=== PATIENT | male | born 1980 ===

== ENCOUNTER 2017-08-03 20:39 | Emergency (ER) | payer SELFPAY ==
[2017-08-03 20:39] VITALS: BMI 21.9
[2017-08-03 20:59] VITALS: BP 107/60; PULSE 58; RESP 16; TEMP 97.5; O2SAT 100
--- NOTE | 2017-08-03 21:18 | ED PDOC ---
HPI: Allergic Reaction Time Seen by Provider: 08/03/17 21:00 Chief Complaint (Nursing): Abnormal Skin Integrity Chief Complaint (Provider): Rash History Per: Patient History/Exam Limitations: no limitations Onset/Duration Of Symptoms: Days (x1 ) Current Symptoms Are (Timing): Still Present Possible Cause: Unknown Associated Symptoms: Skin Rash, Itching. denies: Swelling, Trouble Swallowing, Chest Pain Home/EMS Treatment: Benadryl Additional Complaint(s): Osmani Rocha is a 37 year old male, with no past medical history, who presents to the emergency department complaining of a rash associated with itchiness, and epigastric discomfort onset for 1 day. Patient reports taking a benadryl in the morning and at 6pm today with temporary improvement of symptoms. He states he had similar symptoms in the past due to a seafood allergy, but denies eating anything out of the ordinary. Patient denies chest pain, shortness of breath, swelling, vomit, or diarrhea. No further medical complaints. PMD: None provided. Past Medical History Reviewed: Historical Data, Nursing Documentation, Vital Signs Vital Signs: Last Vital Signs Temp 97.5 F L 08/03/17 20:55 Pulse 58 L 08/03/17 20:55 Resp 16 08/03/17 20:55 BP 107/60 08/03/17 20:55 Pulse Ox 100 08/03/17 20:55 - Medical History PMH: No Chronic Diseases Denies: Chronic Kidney Disease - Surgical History Surgical History: Coronary Stent - Family History Family History: States: Unknown Family Hx - Home Medications Home Medications: Ambulatory Orders Medication Instructions Recorded Docusate [Colace] 100 mg PO Q8 03/18/16 Multivitamin [One Daily] 1 tab PO DAILY 03/18/16 Oxycodone HCl/Acetaminophen 5 - 325 mg PO Q8 PRN 03/18/16 [Percocet 5-325 mg Tablet] Cetirizine HCl [Zyrtec] 10 mg PO DAILY #30 cap 08/03/17 DiphenhydrAMINE [Benadryl] 25 mg PO TID #30 cap 08/03/17 Famotidine [Pepcid] 20 mg PO BID #16 tab 08/03/17 predniSONE [predniSONE Tab] 20 mg PO BID #8 tab 08/03/17 - Allergies Allergies/Adverse Reactions: Allergies Allergy/AdvReac Type Severity Reaction Status Date / Time SHELLFISH Allergy RASH Uncoded 03/16/16 10:15 Review of Systems ROS Statement: Except As Marked, All Systems Reviewed And Found Negative Constitutional: Negative for: Other (swelling) Cardiovascular: Negative for: Chest Pain Respiratory: Negative for: Shortness of Breath Gastrointestinal: Negative for: Vomiting, Diarrhea Physical Exam - Reviewed Nursing Documentation Reviewed: Yes Vital Signs Reviewed: Yes - Physical Exam Appears: Positive for: Well, Non-toxic, No Acute Distress Head Exam: Positive for: ATRAUMATIC, NORMAL INSPECTION, NORMOCEPHALIC Skin: Positive for: Normal Color, Warm, Rash (diffused urticaria) Eye Exam: Positive for: Normal appearance ENT: Positive for: Normal ENT Inspection. Negative for: Other (No swelling to tongue or uvula) Neck: Positive for: Normal, Painless ROM, Supple Respiratory: Negative for: Respiratory Distress Extremity: Positive for: Normal ROM. Negative for: Pedal Edema, Deformity, Swelling (No swelling to extremities) Neurologic/Psych: Positive for: Alert, Oriented - ECG O2 Sat by Pulse Oximetry: 100 (RA) Pulse Ox Interpretation: Normal Disposition - Clinical Impression Clinical Impression: Acute urticaria - Disposition Referrals: [facility] [Outside] [facility] [Outside] Disposition Time: 21:32 Condition: STABLE Additional Instructions: take pepcid twice a day-1 tab in the morning and 1 tab at night for 4 days. take zytec once daily in the morning for 4 days take Benadryl if you have a rash or are itching. you can take it every 6 hours as needed no more that 4 tabs a day until rash goes away take prednisone for 4 days, 1 tab each day Prescriptions: Cetirizine HCl [Zyrtec] 10 mg PO DAILY #30 cap DiphenhydrAMINE [Benadryl] 25 mg PO TID #30 cap Famotidine [Pepcid] 20 mg PO BID #16 tab predniSONE [predniSONE Tab] 20 mg PO BID #8 tab Instructions: Urticaria (ED) Forms: [employer] (Albanian) Medical Decision Making Medical Decision Making: Initial Impression: allergic reaction Initial Plan: --Pepcid 40 mg PO --predniSONE 60 mg PO --reevaluation Scribe Attestation: Documented by Jose Lopez, acting as a scribe for Maria L Vignier PA. Provider Scribe Attestation: All medical record entries made by the Scribe were at my direction and personally dictated by me. I have reviewed the chart and agree that the record accurately reflects my personal performance of the history, physical exam, medical decision making, and the department course for this patient. I have also personally directed, reviewed, and agree with the discharge instructions and disposition.
== END 2017-08-03 21:51 | disposition home or self-care (01) ==
LOC: H.ER 20:39
DX: L29.9 Pruritus, unspecified (principal); L50.9 Urticaria, unspecified

== ENCOUNTER 2018-11-29 12:16 | Observation (INO) | payer MEDICAID, OTHER ==
[2018-11-29 12:17] VITALS: BMI 21.9
[2018-11-29] MEDS ORDERED: Sodium Chloride 0.9% 1,000 ML IV STA (13:07)
--- NOTE | 2018-11-29 13:28 | ED PDOC ---
Syncope/Near Syncope/Dizziness Time Seen by Provider: 11/29/18 12:44 Chief Complaint (Nursing): Syncope History Per: Patient Additional Complaint(s): Pt. states yesterday he woke up and went to the bathroom to urinate. States he had to exert more effort to push out his urine and in doing so he developed dizziness. States he walked back to the bedroom and then passed out. States his brother and friend were in the same room and he woke up to them lying him down on the bed. Reports same symptoms in the past but never fully lost consciousness. Reports symptoms only occur when he has to exert himself to urinate. 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 Currently without any complaints. Denies chest pain, palpitations, headache, anticoagulant use, weakness, fever, chills. Past Medical History Reviewed: Historical Data, Nursing Documentation, Vital Signs Vital Signs: Last Vital Signs Temp 97.8 F 11/29/18 12:32 Pulse 72 11/29/18 12:32 Resp 16 11/29/18 12:32 BP 121/81 11/29/18 12:32 Pulse Ox 100 11/29/18 12:32 - Medical History PMH: No Chronic Diseases Denies: Chronic Kidney Disease - Surgical History Surgical History: Coronary Stent - Family History Family History: States: No Known Family Hx - Home Medications Home Medications: Ambulatory Orders Medication Instructions Recorded Deepa Perez 1 tab PO BID 11/29/18 Multivit-Min/Iron/Folic Acid/K 1 tab PO DAILY 11/29/18 [Adults Multivitamin Tablet] - Allergies Allergies/Adverse Reactions: Allergies Allergy/AdvReac Type Severity Reaction Status Date / Time SHELLFISH Allergy RASH Uncoded 11/29/18 12:31 Review of Systems ROS Statement: Except As Marked, All Systems Reviewed And Found Negative Neurological: Positive for: Altered Mental Status, Dizziness Physical Exam - Reviewed Nursing Documentation Reviewed: Yes Vital Signs Reviewed: Yes - Physical Exam Appears: Positive for: Well, Non-toxic, No Acute Distress Head Exam: Positive for: ATRAUMATIC, NORMAL INSPECTION, NORMOCEPHALIC Skin: Positive for: Normal Color, Warm. Negative for: Rash Eye Exam: Positive for: Normal appearance, EOMI, PERRL. Negative for: Nystagmus ENT: Positive for: Normal ENT Inspection Neck: Positive for: Normal, Painless ROM Cardiovascular/Chest: Positive for: Regular Rate, Rhythm. Negative for: Murmur Respiratory: Positive for: Normal Breath Sounds. Negative for: Respiratory Distress Gastrointestinal/Abdominal: Positive for: Normal Exam, Soft. Negative for: Tenderness Back: Positive for: Normal Inspection Extremity: Positive for: Normal ROM Neurologic/Psych: Positive for: Alert, Oriented (x3), Gait (steady, unassisted) - Laboratory Results Result Diagrams: 11/29/18 13:10 11/29/18 13:10 - ECG ECG: Positive for: Interpreted By Me ECG Rhythm: Positive for: Sinus Rhythm. Negative for: ST/T Changes Rate: 64 O2 Sat by Pulse Oximetry: 100 - Progress ED Course And Treament: Labs, metal plater, CT head w/o contrast ordered. Case d/w Dr. Ochoa who agrees with plan and care. [id number] Case d/w Dr. Tejeda and arrangements made for admission. Pt. informed of plan who agrees with care. All questions answered. Disposition - Clinical Impression Clinical Impression: Syncope - Patient ED Disposition Is Patient to be Admitted: Yes - Disposition Disposition Time: 14:39 Condition: FAIR - Pt Status Changed To: Hospital Disposition Of: Observation
[2018-11-29 13:29] LABS: BASO # 0.1 K/uL (0.0-0.2); BASO % 0.8 % (0.0-2.0); EOS # 0.3 K/uL (0.0-0.7); EOS % 5.5 % (0.0-4.0); LYMPH # 1.1 K/uL (1.0-4.3); LYMPH % 17.4 % (20.0-40.0); MEAN CELL VOLUME 90.5 fl (80.0-94.0); MEAN CORPUSCULAR HEMOGLOBIN 29.9 pg (27.0-31.0); MEAN PLATELET VOLUME 9.3 fl (7.2-11.7); MONO # 0.5 K/uL (0.0-0.8); MONO % 8.8 % (0.0-10.0); NEUT # 4.1 K/uL (1.8-7.0); NEUT % 67.5 % (50.0-75.0); NRBC % 0.1 % (0.0-0.0); RBC 4.7 Mil/uL (4.40-5.90); RED CELL DISTRIBUTION WIDTH 12.3 % (11.5-14.5); WHITE BLOOD COUNT 6.1 K/uL (4.8-10.8)
[2018-11-29 13:30] LABS: ALB/GLOB RATIO 1.4 (1.0-2.1); ALBUMIN 3.9 g/dL (3.5-5.0); ALT/SGPT 67 U/L (21-72); AST/SGOT 46 U/L (17-59); BLOOD UREA NITROGEN 28 mg/dl (9-20); CALCIUM 9.3 mg/dL (8.4-10.2); GFR NON-AFRICAN AMERICAN > 60
--- NOTE | 2018-11-29 13:57 | CT ---
Date of service: 11/29/2018 PROCEDURE: CT HEAD WITHOUT CONTRAST. HISTORY: syncope COMPARISON: None available TECHNIQUE: Axial computed tomography images were obtained through the head/brain without intravenous contrast. Radiation dose: Total exam DLP = 871.59 mGy-cm. This CT exam was performed using one or more of the following dose reduction techniques: Automated exposure control, adjustment of the mA and/or kV according to patient size, and/or use of iterative reconstruction technique. FINDINGS: HEMORRHAGE: No intracranial hemorrhage. BRAIN: No mass effect or edema. Localized encephalomalacia in the superior right temporal lobe adjacent to the sylvian fissure common nonspecific. Possible small old infarct. Rule out posttraumatic. VENTRICLES: Unremarkable. No hydrocephalus. CALVARIUM: Unremarkable. PARANASAL SINUSES: Unremarkable as visualized. No significant inflammatory changes. MASTOID AIR CELLS: Unremarkable as visualized. No inflammatory changes. OTHER FINDINGS: None. IMPRESSION: Focal encephalomalacia common nonspecific, superior right temporal lobe adjacent to sylvian fissure. Otherwise unremarkable.
--- NOTE | 2018-11-29 14:51 | RAD ---
Date of service: 11/29/2018 HISTORY: Clearance COMPARISON: No prior. FINDINGS: LUNGS: No active pulmonary disease. PLEURA: No significant pleural effusion identified, no pneumothorax apparent. CARDIOVASCULAR: No aortic atherosclerotic calcification present. Normal cardiac size. No pulmonary vascular congestion. OSSEOUS STRUCTURES: Mild dextroscoliosis centered at the upper/mid thoracic spine.. VISUALIZED UPPER ABDOMEN: Normal. OTHER FINDINGS: None. IMPRESSION: No active disease.
--- NOTE | 2018-11-29 15:32 | CP.PCM.HP ---
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 Pt states that this morning he went to urinate and strained too hard; felt dizzy. He then doesn't remember much, passed out, but remembers waking up to his friend and brother bringing him to his bed. He states he did not hit his head. At the time of interview in ED, he denies dizziness, chest pain, shortness of breath, n/v/d/c, or any accompanying symptoms. PMD: none Past Med hx;: "artery block"? Past Surg hx: angioplasty w/ artery opening Social hx: denies tobacco use, drug use; 1-2 beers a few times a month Family hx: noncontributory Meds: multivitamin, takes supplement from [place] called Jeannette Monson In ED: Vitals stable CBC CMP Troponin neg Head CT: Focal encephalomalacia common nonspecific, superior right temporal lobe adjacent to sylvian fissure. Otherwise unremarkable. CXR: no active disease. Present on Admission - Present on Admission Any Indicators Present on Admission: No Review of Systems - Review of Systems All systems: reviewed and no additional remarkable complaints except - EENT Ears: Dizziness - Cardiovascular Cardiovascular: absent: Chest Pain, Chest Pain at Rest, Dyspnea - Respiratory Respiratory: absent: Cough, Dyspnea, Dyspnea on Exertion - Gastrointestinal Gastrointestinal: absent: Diarrhea, Nausea, Vomiting - Genitourinary Genitourinary: As Per HPI - Neurological Neurological: Dizziness Past Patient History - Infectious Disease Hx of Infectious Diseases: None - Past Medical History & Family History Past Medical History?: Yes - Past Social History Smoking Status: Never Smoked Alcohol: Social Drugs: Denies - CARDIAC Hx Cardiac Disorders: Yes Other/Comment: ?Rheumatic Heart Diease? - PULMONARY Hx Respiratory Disorders: No - NEUROLOGICAL Hx Neurological Disorder: Yes Other/Comment: SOMETIMES NUMBNESS IN MOUTH - HEENT Hx HEENT Problems: No - RENAL Hx Chronic Kidney Disease: No - ENDOCRINE/METABOLIC Hx Endocrine Disorders: No - HEMATOLOGICAL/ONCOLOGICAL Hx Blood Disorders: No - INTEGUMENTARY Hx Dermatological Problems: No - MUSCULOSKELETAL/RHEUMATOLOGICAL Hx Musculoskeletal Disorders: No - GASTROINTESTINAL Hx Gastrointestinal Disorders: No - GENITOURINARY/GYNECOLOGICAL Hx Genitourinary Disorders: No - PSYCHIATRIC Hx Emotional Abuse: No Hx Physical Abuse: No Hx Substance Use: No - SURGICAL HISTORY Hx Coronary Stent: Yes - ANESTHESIA Hx Anesthesia: Yes Hx Anesthesia Reactions: No Hx Malignant Hyperthermia: No Meds Allergies/Adverse Reactions: Allergies Allergy/AdvReac Type Severity Reaction Status Date / Time SHELLFISH Allergy RASH Uncoded 11/29/18 12:31 Physical Exam - Constitutional Appears: Non-toxic, No Acute Distress - Eye Exam Eye Exam: Normal appearance, PERRL - ENT Exam ENT Exam: Mucous Membranes Moist - Neck Exam Neck exam: Positive for: Full Rom - Respiratory Exam Respiratory Exam: Clear to Auscultation Bilateral, NORMAL BREATHING PATTERN - Cardiovascular Exam Cardiovascular Exam: REGULAR RHYTHM, +S1, +S2 - GI/Abdominal Exam GI & Abdominal Exam: Normal Bowel Sounds, Soft. absent: Tenderness - Extremities Exam Extremities exam: Positive for: normal inspection. Negative for: calf tenderness, pedal edema - Back Exam Back exam: NORMAL INSPECTION - Neurological Exam Neurological exam: Alert, Oriented x3 - Skin Skin Exam: Dry, Warm Results - Vital Signs Recent Vital Signs: Last Vital Signs Temp 98.1 F 11/29/18 14:59 Pulse 67 11/29/18 14:59 Resp 16 11/29/18 14:59 BP 116/80 11/29/18 14:59 Pulse Ox 99 11/29/18 14:59 - Labs Result Diagrams: 11/29/18 13:10 11/29/18 13:10 Labs: Laboratory Results - last 24 hr 11/29/18 11/29/18 11/29/18 12:52 13:10 13:10 WBC 6.1 RBC 4.70 Hgb 14.0 Hct 42.5 MCV 90.5 MCH 29.9 MCHC 33.0 RDW 12.3 Plt Count 115 L D MPV 9.3 Neut % (Auto) 67.5 Lymph % (Auto) 17.4 L Edwards % (Auto) 8.8 Eos % (Auto) 5.5 H Baso % (Auto) 0.8 Neut # (Auto) 4.1 Lymph # (Auto) 1.1 Edwards # (Auto) 0.5 Eos # (Auto) 0.3 Baso # (Auto) 0.1 Sodium 138 Potassium 5.1 H Chloride 105 Carbon Dioxide 27 Anion Gap 11 BUN 28 H Creatinine 1.1 Est GFR ( Amer) > 60 Est GFR (Non-Af Amer) > 60 POC Glucose (mg/dL) 97 Random Glucose 81 Calcium 9.3 Total Bilirubin 0.9 AST 46 ALT 67 Alkaline Phosphatase 38 Troponin I < 0.0120 Total Protein 6.8 Albumin 3.9 Globulin 2.8 Albumin/Globulin Ratio 1.4 Assessment & Plan - Assessment and Plan (Free Text) Assessment: 38 yo M with history significant for balloon angioplasty in [place] in 2012 (?) admitted for episode of syncope. Plan: Syncope - Echocardiogram - Carotid & Vertebral Duplex u/s - IVF - Urinalysis - BMP - Lipid panel - Troponin Q8 hrs - TSH - CBC - F/u UDS Hyperkalemia - K 5.1; repeat BMP Diet Heart Healthy Diet DVT/GI prophylaxis - Protonix PO daily - Lovenox SC daily Discussed w/ Dr. Tjeeda. <Marcel Tejeda D - Last Filed: 11/30/18 09:28> Results - Vital Signs Recent Vital Signs: Last Vital Signs Temp 97.8 F 11/30/18 07:52 Pulse 56 L 11/30/18 07:52 Resp 18 11/30/18 07:52 BP 107/71 11/30/18 07:52 Pulse Ox 100 11/30/18 07:52 - Labs Result Diagrams: 11/30/18 04:35 11/30/18 04:35 Labs: Laboratory Results - last 24 hr 11/29/18 11/29/18 11/29/18 12:52 13:10 13:10 WBC 6.1 RBC 4.70 Hgb 14.0 Hct 42.5 MCV 90.5 MCH 29.9 MCHC 33.0 RDW 12.3 Plt Count 115 L D MPV 9.3 Neut % (Auto) 67.5 Lymph % (Auto) 17.4 L Edwards % (Auto) 8.8 Eos % (Auto) 5.5 H Baso % (Auto) 0.8 Neut # (Auto) 4.1 Lymph # (Auto) 1.1 Edwards # (Auto) 0.5 Eos # (Auto) 0.3 Baso # (Auto) 0.1 Sodium 138 Potassium 5.1 H Chloride 105 Carbon Dioxide 27 Anion Gap 11 BUN 28 H Creatinine 1.1 Est GFR ( Amer) > 60 Est GFR (Non-Af Amer) > 60 POC Glucose (mg/dL) 97 Random Glucose 81 Calcium 9.3 Total Bilirubin 0.9 AST 46 ALT 67 Alkaline Phosphatase 38 Troponin I < 0.0120 Total Protein 6.8 Albumin 3.9 Globulin 2.8 Albumin/Globulin Ratio 1.4 Triglycerides Cholesterol LDL Cholesterol Direct HDL Cholesterol TSH 3rd Generation 1.11 Urine Color Urine Clarity Urine pH Ur Specific [place] Urine Protein Urine Glucose (UA) Urine Ketones Urine Blood Urine Nitrate Urine Bilirubin Urine Urobilinogen Ur Leukocyte Esterase Urine RBC (Auto) Ur Squamous Epith Cells Urine Opiates Screen Urine Methadone Screen Ur Barbiturates Screen Ur Phencyclidine Scrn Ur Amphetamines Screen U Benzodiazepines Scrn U Oth Cocaine Metabols U Cannabinoids Screen 11/29/18 11/29/18 11/29/18 15:25 15:25 20:40 WBC RBC Hgb Hct MCV MCH MCHC RDW Plt Count MPV Neut % (Auto) Lymph % (Auto) Edwards % (Auto) Eos % (Auto) Baso % (Auto) Neut # (Auto) Lymph # (Auto) Edwards # (Auto) Eos # (Auto) Baso # (Auto) Sodium Potassium Chloride Carbon Dioxide Anion Gap BUN Creatinine Est GFR ( Amer) Est GFR (Non-Af Amer) POC Glucose (mg/dL) Random Glucose Calcium Total Bilirubin AST ALT Alkaline Phosphatase Troponin I < 0.0120 Total Protein Albumin Globulin Albumin/Globulin Ratio Triglycerides Cholesterol LDL Cholesterol Direct HDL Cholesterol TSH 3rd Generation Urine Color Straw Urine Clarity Clear Urine pH 6.0 Ur Specific [place] 1.011 Urine Protein Negative Urine Glucose (UA) Neg Urine Ketones Negative Urine Blood Negative Urine Nitrate Negative Urine Bilirubin Negative Urine Urobilinogen 0.2-1.0 Ur Leukocyte Esterase Neg Urine RBC (Auto) 2 Ur Squamous Epith Cells < 1 Urine Opiates Screen Negative Urine Methadone Screen Negative Ur Barbiturates Screen Negative Ur Phencyclidine Scrn Negative Ur Amphetamines Screen Negative U Benzodiazepines Scrn Negative U Oth Cocaine Metabols Negative U Cannabinoids Screen Negative 11/30/18 11/30/18 04:35 04:35 WBC 6.0 RBC 4.61 Hgb 13.6 Hct 40.8 MCV 88.5 D MCH 29.5 MCHC 33.3 RDW 12.2 Plt Count 95 L D MPV 9.2 Neut % (Auto) 53.3 Lymph % (Auto) 31.0 Edwards % (Auto) 8.1 Eos % (Auto) 6.8 H Baso % (Auto) 0.8 Neut # (Auto) 3.2 Lymph # (Auto) 1.8 Edwards # (Auto) 0.5 Eos # (Auto) 0.4 Baso # (Auto) 0.0 Sodium 138 Potassium 4.0 Chloride 105 Carbon Dioxide 28 Anion Gap 9 L BUN 23 H Creatinine 1.1 Est GFR ( Amer) > 60 Est GFR (Non-Af Amer) > 60 POC Glucose (mg/dL) Random Glucose 82 Calcium 9.0 Total Bilirubin AST ALT Alkaline Phosphatase Troponin I < 0.0120 Total Protein Albumin Globulin Albumin/Globulin Ratio Triglycerides 74 Cholesterol 169 LDL Cholesterol Direct 117 HDL Cholesterol 47 TSH 3rd Generation Urine Color Urine Clarity Urine pH Ur Specific [place] Urine Protein Urine Glucose (UA) Urine Ketones Urine Blood Urine Nitrate Urine Bilirubin Urine Urobilinogen Ur Leukocyte Esterase Urine RBC (Auto) Ur Squamous Epith Cells Urine Opiates Screen Urine Methadone Screen Ur Barbiturates Screen Ur Phencyclidine Scrn Ur Amphetamines Screen U Benzodiazepines Scrn U Oth Cocaine Metabols U Cannabinoids Screen Attending/Attestation - Attestation I have personally seen and examined this patient.: Yes I have fully participated in the care of the patient.: Yes I have reviewed all pertinent clinical information: Yes Notes (Text): 11/30/18 09:24 Patient seen and examined with resident. Case discussed and agreed with assessment and plan of management. Patient is a 38 yo male with hsitory of CAD base on previous angioplasty but not place on maintenance since procedure was done in [place] now presenting with several episodes of micturition dizziness and syncope since 3 yrs ago.
[2018-11-29 15:53] LABS: SQUAMOUS EPITHIAL < 1 /hpf (0-5); URINE BILIRUBIN NEGATIVE (NEGATIVE); URINE BLOOD NEGATIVE (NEGATIVE); URINE CLARITY CLEAR (Clear); URINE COLOR STRAW (YELLOW); URINE GLUCOSE (UA) NEG (NEGATIVE); URINE LEUKOCYTE ESTERASE NEG Leu/uL (Negative); URINE PROTEIN NEGATIVE (NEGATIVE); URINE UROBILINOGEN 0.2-1.0 mg/dL (0.2-1.0)
[2018-11-29 16:19] LABS: BARBITURATES, UR NEGATIVE (NEGATIVE); BENZODIAZEPINES, UR NEGATIVE (NEGATIVE); OPIATES, UR NEGATIVE (NEGATIVE); PHENCYCLIDINE, UR NEGATIVE (NEGATIVE)
[2018-11-29] MEDS: Pantoprazole 40 mg EC Tab PO SCH (17:11)
--- NOTE | 2018-11-29 17:33 | CARD ---
APPROVED REPORT Date of service: 11/29/2018 EXAM: Two-dimensional and M-mode echocardiogram with Doppler and color Doppler. Other Information Quality : GoodRhythm : NSR INDICATION Syncope 2D DIMENSIONS IVSd1.24 (0.7-1.1cm)LVDd4.52 (3.9-5.9cm) LVOT Diameter1.60 (1.8-2.4cm)PWd0.81 (0.7-1.1cm) IVSs1.26 (0.8-1.2cm)LVDs2.83 (2.5-4.0cm) FS (%) 37.4 %PWs1.50 (0.8-1.2cm) M-Mode DIMENSIONS Left Atrium (MM)4.30 (2.5-4.0cm)IVSd1.06 (0.7-1.1cm) Aortic Root2.86 (2.2-3.7cm)LVDd4.66 (4.0-5.6cm) Aortic Cusp Exc.1.47 (1.5-2.0cm)PWd0.93 (0.7-1.1cm) IVSs1.47 cmFS (%) 38 % LVDs2.91 (2.0-3.8cm)PWs1.24 cm Aortic Valve AoV Peak Yeejmpnu617.7cm/sAoV VTI31.3cmAO Peak GR.8mmHg LVOT Peak Ohuaxvgt19.3cm/sLVOT VTI20.53cmAO Mean GR.4mmHg JHONY (VMAX)0.36ym0EAB (VTI)0.75cm2 Mitral Valve MV E Xirfziyx407.6cm/sMV DECEL [id number] A Sslvtbyx873.3cm/s MV XDG887smL/A ratio1.3MVA (PHT)1.33cm2 TDI E/Lateral E'0.0E/Medial E'0.0 Pulmonary Valve PV Peak Qauuruch752.3cm/s Tricuspid Valve TR Peak Mnehvlnn514sg/sRAP [id number] Peak Gr.19mmHg [id number] LEFT VENTRICLE The left ventricle is normal size. There is normal left ventricular wall thickness. The left ventricular systolic function is normal. The estimated ejection fraction is 65-70% No regional wall motion abnormalities noted.. The left ventricular diastolic function is normal. No left ventricle thrombus noted on this study. There is no ventricular septal defect visualized. There is no left ventricular aneurysm. There is no mass noted in the left ventricle. RIGHT VENTRICLE The right ventricle is normal size. There is normal right ventricular wall thickness. The right ventricular systolic function is normal. ATRIA The left atrium size is normal. The right atrium size is normal. The interatrial septum is intact with no evidence for an atrial septal defect. AORTIC VALVE The aortic valve is thickened but opens well. No aortic regurgitation is present. There is no aortic valvular stenosis. There is no aortic valvular vegetation. MITRAL VALVE The mitral valve leaflets are thickened. There is no evidence of mitral valve prolapse. There is moderate to severe mitral valve stenosis. Mitral regurgitation is mild. TRICUSPID VALVE The tricuspid valve is normal in structure. There is mild tricuspid regurgitation. There is no tricuspid valve prolapse or vegetation. There is no tricuspid valve stenosis. PULMONIC VALVE The pulmonary valve is normal in structure. There is trace pulmonic valvular regurgitation. There is no pulmonic valvular stenosis. GREAT VESSELS The aortic root is normal in size. The ascending aorta is normal in size. The pulmonary artery is normal. The IVC is normal in size and collapses >50% with inspiration. PERICARDIAL EFFUSION There is no pericardial effusion. There is no pleural effusion. <Conclusion> Normal LV size and systoliuc function The estimated ejection fraction is 65-70% Chelsey valve is moderately to severely stenotic- probably of rheumatic etiology Mild MR Thichened AoV, non stenotic Mild TR with normal estimated peak RVSP Trace AR
--- NOTE | 2018-11-29 17:57 | CP.PCM.CON ---
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 Pt states that this morning he darci t to urinate and strained too hard; felt dizzy. He then doesn't remember much, passed out, but remembers waking up to his friend and brother bringing him to his bed. He states he did not hit his head. At the time of interview in ED, he denies dizziness, chest pain, shortness of breath, n/v/d/c, or any accompanying symptoms. Pt claims that he has had syncopal episodes in the past it is always after urination? EKG: nSR Echo: mild to moderate MS PMD: none Past Med hx;: "artery block"? Past Surg hx: angioplasty w/ artery opening Meds: multivitamin, takes supplement from [place] called Jeannette Monson ?? Past Patient History - Infectious Disease Hx of Infectious Diseases: None - Past Medical History & Family History Past Medical History?: Yes - Past Social History Smoking Status: Never Smoked - CARDIAC Hx Cardiac Disorders: Yes Other/Comment: Balloon angioplasty in 2006 - PULMONARY Hx Respiratory Disorders: No - NEUROLOGICAL Hx Neurological Disorder: No - HEENT Hx HEENT Problems: No - RENAL Hx Chronic Kidney Disease: No - ENDOCRINE/METABOLIC Hx Endocrine Disorders: No - HEMATOLOGICAL/ONCOLOGICAL Hx Blood Disorders: No Hx AIDS: No Hx Human Immunodeficiency Virus (HIV): No - INTEGUMENTARY Hx Dermatological Problems: No - MUSCULOSKELETAL/RHEUMATOLOGICAL Hx Musculoskeletal Disorders: No Hx Falls: No - GASTROINTESTINAL Hx Gastrointestinal Disorders: No - GENITOURINARY/GYNECOLOGICAL Hx Genitourinary Disorders: No - PSYCHIATRIC Hx Psychophysiologic Disorder: No Hx Emotional Abuse: No Hx Physical Abuse: No Hx Substance Use: No - SURGICAL HISTORY Hx Surgeries: Yes Hx Coronary Stent: Yes Other/Comment: balloon angioplasty in 2006 - ANESTHESIA Hx Anesthesia: Yes Hx Anesthesia Reactions: No Hx Malignant Hyperthermia: No Has any member of the family had a problem w/ anesthesia?: No Meds Allergies/Adverse Reactions: Allergies Allergy/AdvReac Type Severity Reaction Status Date / Time SHELLFISH Allergy RASH Uncoded 11/29/18 12:31 - Medications Medications: Current Medications Aspirin (Ecotrin) 81 mg PO DAILY PAPO Docusate Sodium (Colace) 100 mg PO BID PRN PRN Reason: Constipation Enoxaparin Sodium (Lovenox) 40 mg SC DAILY [facility]; Protocol Pantoprazole Sodium (Protonix Ec Tab) 40 mg PO DAILY PAPO Last Admin: 11/29/18 17:11 Dose: 40 mg Results - Vital Signs Recent Vital Signs: Last Vital Signs Temp 97.6 F 11/29/18 16:42 Pulse 67 11/29/18 17:28 Resp 16 11/29/18 17:28 BP 105/66 11/29/18 16:42 Pulse Ox 99 11/29/18 17:28 - Labs Result Diagrams: 11/30/18 04:35 11/30/18 04:35 Labs: Laboratory Results - last 24 hr 11/29/18 11/29/18 11/29/18 12:52 13:10 13:10 WBC 6.1 RBC 4.70 Hgb 14.0 Hct 42.5 MCV 90.5 MCH 29.9 MCHC 33.0 RDW 12.3 Plt Count 115 L D MPV 9.3 Neut % (Auto) 67.5 Lymph % (Auto) 17.4 L [place] % (Auto) 8.8 Eos % (Auto) 5.5 H Baso % (Auto) 0.8 Neut # (Auto) 4.1 Lymph # (Auto) 1.1 [place] # (Auto) 0.5 Eos # (Auto) 0.3 Baso # (Auto) 0.1 Sodium 138 Potassium 5.1 H Chloride 105 Carbon Dioxide 27 Anion Gap 11 BUN 28 H Creatinine 1.1 Est GFR ( Amer) > 60 Est GFR (Non-Af Amer) > 60 POC Glucose (mg/dL) 97 Random Glucose 81 Calcium 9.3 Total Bilirubin 0.9 AST 46 ALT 67 Alkaline Phosphatase 38 Troponin I < 0.0120 Total Protein 6.8 Albumin 3.9 Globulin 2.8 Albumin/Globulin Ratio 1.4 TSH 3rd Generation 1.11 Urine Color Urine Clarity Urine pH Ur Specific [place] Urine Protein Urine Glucose (UA) Urine Ketones Urine Blood Urine Nitrate Urine Bilirubin Urine Urobilinogen Ur Leukocyte Esterase Urine RBC (Auto) Ur Squamous Epith Cells Urine Opiates Screen Urine Methadone Screen Ur Barbiturates Screen Ur Phencyclidine Scrn Ur Amphetamines Screen U Benzodiazepines Scrn U Oth Cocaine Metabols U Cannabinoids Screen 11/29/18 11/29/18 15:25 15:25 WBC RBC Hgb Hct MCV MCH MCHC RDW Plt Count MPV Neut % (Auto) Lymph % (Auto) [place] % (Auto) Eos % (Auto) Baso % (Auto) Neut # (Auto) Lymph # (Auto) [place] # (Auto) Eos # (Auto) Baso # (Auto) Sodium Potassium Chloride Carbon Dioxide Anion Gap BUN Creatinine Est GFR ( Amer) Est GFR (Non-Af Amer) POC Glucose (mg/dL) Random Glucose Calcium Total Bilirubin AST ALT Alkaline Phosphatase Troponin I Total Protein Albumin Globulin Albumin/Globulin Ratio TSH 3rd Generation Urine Color Straw Urine Clarity Clear Urine pH 6.0 Ur Specific [place] 1.011 Urine Protein Negative Urine Glucose (UA) Neg Urine Ketones Negative Urine Blood Negative Urine Nitrate Negative Urine Bilirubin Negative Urine Urobilinogen 0.2-1.0 Ur Leukocyte Esterase Neg Urine RBC (Auto) 2 Ur Squamous Epith Cells < 1 Urine Opiates Screen Negative Urine Methadone Screen Negative Ur Barbiturates Screen Negative Ur Phencyclidine Scrn Negative Ur Amphetamines Screen Negative U Benzodiazepines Scrn Negative U Oth Cocaine Metabols Negative U Cannabinoids Screen Negative Assessment & Plan (1) Syncope Assessment and Plan: Most likely secondary to Vasovagal Post Micturition Syncope Status: Acute
--- NOTE | 2018-11-29 18:56 | CARD ---
APPROVED REPORT Date of service: 11/29/2018 EKG Measurement Heart [id number] ID [id number] <Conclusion> Normal sinus rhythm Possible Left atrial enlargement Rightward axis Borderline ECG
[2018-11-30 00:06] VITALS: RESP 18
[2018-11-30 05:49] LABS: BASO % 0.8 % (0.0-2.0); EOS # 0.4 K/uL (0.0-0.7); EOS % 6.8 % (0.0-4.0); HEMOGLOBIN 13.6 g/dL (12.0-18.0); LYMPH # 1.8 K/uL (1.0-4.3); MEAN CELL VOLUME 88.5 fl (80.0-94.0); MEAN CORPUSCULAR HEMOGLOBIN 29.5 pg (27.0-31.0); MEAN CORPUSCULAR HGB CONC 33.3 g/dL (33.0-37.0); MEAN PLATELET VOLUME 9.2 fl (7.2-11.7); MONO # 0.5 K/uL (0.0-0.8); MONO % 8.1 % (0.0-10.0); NEUT # 3.2 K/uL (1.8-7.0); NEUT % 53.3 % (50.0-75.0); RBC 4.61 Mil/uL (4.40-5.90); RED CELL DISTRIBUTION WIDTH 12.2 % (11.5-14.5)
[2018-11-30 06:13] LABS: LDL CHOLESTEROL 117 mg/dL (0-129)
[2018-11-30 06:15] LABS: BLOOD UREA NITROGEN 23 mg/dl (9-20); GFR NON-AFRICAN AMERICAN > 60; HDL CHOLESTEROL 47 MG/DL (30-70)
[2018-11-30 07:53] VITALS: BP 107/71; TEMP 97.8; O2SAT 100
[2018-11-30] MEDS ORDERED: Enoxaparin 40 mg Syringe SC SCH (09:00)
[2018-11-30] MEDS: Pantoprazole 40 mg EC Tab PO SCH (09:25)
--- NOTE | 2018-11-30 10:23 | CP.PCM.DIS ---
Provider - Provider Date of Admission: 11/29/18 14:36 Attending physician: Marcel Tejeda MD Consults: 11/29/18 17:16 Cardiology Consult Routine Comment: Consulting Provider: Cameron Altamirano Consulting Physician: Cameron Altamirano Reason for Consult: syncope probably secondary to mitral stenoses Time Spent in preparation of Discharge (in minutes): 35 Diagnosis - Discharge Diagnosis (1) Syncope Status: Resolved Hospital Course - Lab Results Lab Results: Most Recent Lab Values WBC 6.0 K/uL (4.8-10.8) 11/30/18 04:35 RBC 4.61 Mil/uL (4.40-5.90) 11/30/18 04:35 Hgb 13.6 g/dL (12.0-18.0) 11/30/18 04:35 Hct 40.8 % (35.0-51.0) 11/30/18 04:35 MCV 88.5 fl (80.0-94.0) D 11/30/18 04:35 MCH 29.5 pg (27.0-31.0) 11/30/18 04:35 MCHC 33.3 g/dL (33.0-37.0) 11/30/18 04:35 RDW 12.2 % (11.5-14.5) 11/30/18 04:35 Plt Count 95 K/uL (130-400) L D 11/30/18 04:35 MPV 9.2 fl (7.2-11.7) 11/30/18 04:35 Neut % (Auto) 53.3 % (50.0-75.0) 11/30/18 04:35 Lymph % (Auto) 31.0 % (20.0-40.0) 11/30/18 04:35 Wise % (Auto) 8.1 % (0.0-10.0) 11/30/18 04:35 Eos % (Auto) 6.8 % (0.0-4.0) H 11/30/18 04:35 Baso % (Auto) 0.8 % (0.0-2.0) 11/30/18 04:35 Neut # (Auto) 3.2 K/uL (1.8-7.0) 11/30/18 04:35 Lymph # (Auto) 1.8 K/uL (1.0-4.3) 11/30/18 04:35 Wise # (Auto) 0.5 K/uL (0.0-0.8) 11/30/18 04:35 Eos # (Auto) 0.4 K/uL (0.0-0.7) 11/30/18 04:35 Baso # (Auto) 0.0 K/uL (0.0-0.2) 11/30/18 04:35 Sodium 138 mmol/l (132-148) 11/30/18 04:35 Potassium 4.0 MMOL/L (3.6-5.0) 11/30/18 04:35 Chloride 105 mmol/L (98-107) 11/30/18 04:35 Carbon Dioxide 28 mmol/L (22-30) 11/30/18 04:35 Anion Gap 9 (10-20) L 11/30/18 04:35 BUN 23 mg/dl (9-20) H 11/30/18 04:35 Creatinine 1.1 mg/dl (0.8-1.5) 11/30/18 04:35 Est GFR ( Amer) > 60 11/30/18 04:35 Est GFR (Non-Af Amer) > 60 11/30/18 04:35 POC Glucose (mg/dL) 97 mg/dL (65-110) 11/29/18 12:52 Random Glucose 82 mg/dL (75-110) 11/30/18 04:35 Calcium 9.0 mg/dL (8.4-10.2) 11/30/18 04:35 Total Bilirubin 0.9 mg/dl (0.2-1.3) 11/29/18 13:10 AST 46 U/L (17-59) 11/29/18 13:10 ALT 67 U/L (21-72) 11/29/18 13:10 Alkaline Phosphatase 38 U/L (38-126) 11/29/18 13:10 Troponin I < 0.0120 ng/mL (0.00-0.120) 11/30/18 04:35 Total Protein 6.8 G/DL (6.3-8.2) 11/29/18 13:10 Albumin 3.9 g/dL (3.5-5.0) 11/29/18 13:10 Globulin 2.8 gm/dL (2.2-3.9) 11/29/18 13:10 Albumin/Globulin Ratio 1.4 (1.0-2.1) 11/29/18 13:10 Triglycerides 74 mg/DL (0-149) 11/30/18 04:35 Cholesterol 169 mg/dL (0-199) 11/30/18 04:35 LDL Cholesterol Direct 117 mg/dL (0-129) 11/30/18 04:35 HDL Cholesterol 47 MG/DL (30-70) 11/30/18 04:35 TSH 3rd Generation 1.11 mIU/ML (0.46-4.68) 11/29/18 13:10 Urine Color Straw (YELLOW) 11/29/18 15:25 Urine Clarity Clear (Clear) 11/29/18 15:25 Urine pH 6.0 (5.0-8.0) 11/29/18 15:25 Ur Specific [place] 1.011 (1.003-1.030) 11/29/18 15:25 Urine Protein Negative mg/dL (NEGATIVE) 11/29/18 15:25 Urine Glucose (UA) Neg mg/dL (NEGATIVE) 11/29/18 15:25 Urine Ketones Negative mg/dL (NEGATIVE) 11/29/18 15:25 Urine Blood Negative (NEGATIVE) 11/29/18 15:25 Urine Nitrate Negative (NEGATIVE) 11/29/18 15:25 Urine Bilirubin Negative (NEGATIVE) 11/29/18 15:25 Urine Urobilinogen 0.2-1.0 mg/dL (0.2-1.0) 11/29/18 15:25 Ur Leukocyte Esterase Neg Maxx/uL (Negative) 11/29/18 15:25 Urine RBC (Auto) 2 /hpf (0-3) 11/29/18 15:25 Ur Squamous Epith Cells < 1 /hpf (0-5) 11/29/18 15:25 Urine Opiates Screen Negative (NEGATIVE) 11/29/18 15:25 Urine Methadone Screen Negative (NEGATIVE) 11/29/18 15:25 Ur Barbiturates Screen Negative (NEGATIVE) 11/29/18 15:25 Ur Phencyclidine Scrn Negative (NEGATIVE) 11/29/18 15:25 Ur Amphetamines Screen Negative (NEGATIVE) 11/29/18 15:25 U Benzodiazepines Scrn Negative (NEGATIVE) 11/29/18 15:25 U Oth Cocaine Metabols Negative (NEGATIVE) 11/29/18 15:25 U Cannabinoids Screen Negative (NEGATIVE) 11/29/18 15:25 - Hospital Course Hospital Course: Pt is a 38 y/o male with hx of questionannable cardiac valve disease during childhood and baloon angioplasty done in [place] presented to [facility] after an episode of syncope that occurred while urinating and was admitted for telemetry monitoring and syncopy workup. He had an EKG which was normal sinus rhythm, Head CT did not show any acute findings, Echo was significant for Moderately to severely stenotic Mitral Valve stenosis w/ mild Mitral valve regurgitation, EF 65-70%.During his admission, he reamined hemodynamically stable, no events on the cardiac cath lab radiology technologist, and did not have any syncopal episodes. He was evaluated by Crime Victim Specialist, Dr. Altamirano, who did not recommend any intervention at this point and instructed patient to follow up with a Crime Victim Specialist outpatient for monitoring of his valve disease. Pt was seen and examined this morning with no concerns/complaints. Pt was discharge home with close follow up at the [facility] within 1 week. Discharge Exam - Head Exam Head Exam: ATRAUMATIC, NORMAL INSPECTION, NORMOCEPHALIC - Eye Exam Eye Exam: Normal appearance - ENT Exam ENT Exam: Mucous Membranes Moist - Respiratory Exam Respiratory Exam: Clear to PA & Lateral. absent: Accessory Muscle Use - Cardiovascular Exam Cardiovascular Exam: REGULAR RHYTHM, +S1, +S2, Systolic Murmur (mild +2/6 diastolic murmur at LLSB) - GI/Abdominal Exam GI & Abdominal Exam: Normal Bowel Sounds - Neurological Exam Neurological exam: Alert, CN II-XII Intact, Oriented x3 - Psychiatric Exam Psychiatric exam: Normal Affect - Skin Skin Exam: Normal Color Discharge Plan - Follow Up Plan Condition: FAIR Disposition: HOME/ ROUTINE Instructions: Syncope (Fainting) (DC), Syncope (DC), Syncope (GEN) Additional Instructions: please follow up with business area manager at [place] [facility] for further evaluation of heart valve. follow up appt on 12/08/18 at 3:20pm with Dr. Hernandez. Referrals: [facility] [Outside]
[2018-11-30 11:06] VITALS: PULSE 55
--- NOTE | 2018-11-30 11:11 | US ---
Date of service: 11/29/2018 PROCEDURE: Duplex ultrasound of the carotid and vertebral arteries. HISTORY: syncopy COMPARISON: None available. TECHNIQUE: Grayscale and duplex Doppler evaluation of the cervical carotid and vertebral arteries were performed. The common carotid, carotid bifurcations and cervical ICA and proximal ECA were evaluated. The vertebral arteries were evaluated for gross patency and direction. FINDINGS: RIGHT CAROTID ARTERIES: Common Carotid Artery: Maximal flow velocity of 72.5 cm/s. Carotid Bifurcation: Intimal thickening is present Internal Carotid Artery:Heterogeneous plaque formation. Maximal flow velocity of 72.2 cm/s. External Carotid Artery (proximal branches): Maximal flow velocity of 88.2 cm/s. ICA/CCA Ratio: 0.8 LEFT CAROTID ARTERIES: Common Carotid Artery: Maximal flow velocity of 103.2 cm/s. Carotid Bifurcation: Intimal thickening is present Internal Carotid Artery:Heterogeneous plaque formation. Maximal flow velocity of 63.0 cm/s. External Carotid Artery (proximal branches): Maximal flow velocity of 78.2 cm/s. ICA/CCA Ratio: 0.9 VERTEBRAL ARTERIES: Right Vertebral Artery: Patent. Antegrade flow. Left Vertebral Artery: Patent. Antegrade flow. OTHER FINDINGS: Atherosclerotic calcification present. IMPRESSION: Right ICA degree of stenosis: Less than 50% Left ICA degree of stenosis: Less than 50% Reference Internal Carotid Artery (ICA) Peak Systolic Velocity (PSV) for above: 1. Less than 50% stenosis less than 125 cm/s peak systolic velocity 2. 50-69% stenosis 125-230cm/s peak systolic velocity 3. Greater than 70% but less than near occlusion greater than 230 cm/s peak systolic velocity
== END 2018-11-30 11:17 | disposition home or self-care (01) ==
LOC: H.ER 12:16 → H.ERHOLD 14:36 → H.TEL 16:23
DX: R55 Syncope and collapse (principal); I05.0 Rheumatic mitral stenosis; Z95.5 Presence of coronary angioplasty implant and graft; Z91.013 Allergy to seafood; E87.5 Hyperkalemia
CPT/HCPCS: 36415; 70450; 71045; 80048; 80053; 80061; 81003; 82948; 84443; 84484; 85025; 93005; 93306; 93880; 96360; 99285; G0378; G0480; J1650; J7030

== ENCOUNTER → 2019-03-30 | Emergency (ER) | payer SELFPAY ==
[2019-03-30 14:36] VITALS: BMI 21.9
[2019-03-30 14:45] VITALS: BP 122/70; PULSE 69; RESP 18; TEMP 98.3; O2SAT 100
--- NOTE | 2019-03-30 16:29 | ED PDOC ---
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 He notes having a history of a valve angioplasty, which after reviewing old charts, was done three years ago in [place] after mitral valve stenosis was found on an echo. Patient was seen and admitted in 2018 after a syncopal episode where he was observed and discharged after a negative neuro and cardiac workup besides a mitral valve stenosis showing up on his echo. He has had no follow up since, but states he has a correction officer appointment later this month. Otherwise, denies chest pain, vomiting, cough, phlegm production (but states he feels congested), diarrhea, and fever. Of note, patient has no family history of cardiac disease, PEs, or blood clots. 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 heart disease; mitral valve stenosis - Surgical History Surgical History: Denies: Coronary Stent Other surgeries: valve angioplasty - Family History Family History: Denies: CAD, Other Other Family History: PE or blood clots - Social History Current smoker - smoking cessation education provided: No Alcohol: None Drugs: Denies - Home Medications Home Medications: Ambulatory Orders Medication Instructions Recorded Deepa Gugguli 1 tab PO BID 11/29/18 Multivit-Min/Iron/Folic Acid/K 1 tab PO DAILY 11/29/18 [Adults Multivitamin Tablet] - Allergies Allergies/Adverse Reactions: Allergies Allergy/AdvReac Type Severity Reaction Status Date / Time SHELLFISH Allergy RASH Uncoded 03/30/19 14:43 Review of Systems ROS Statement: Except As Marked, All Systems Reviewed And Found Negative Constitutional: Negative for: Fever ENT: Positive for: Other (feels congested) Cardiovascular: Negative for: Chest Pain Respiratory: Positive for: Shortness of Breath. Negative for: Cough, Sputum Gastrointestinal: Negative for: Vomiting, Diarrhea Physical Exam - Reviewed Nursing Documentation Reviewed: Yes Vital Signs Reviewed: Yes - Physical Exam Appears: Positive for: No Acute Distress Head Exam: Positive for: ATRAUMATIC, NORMAL INSPECTION, NORMOCEPHALIC Skin: Positive for: Normal Color, Warm, DRY Eye Exam: Positive for: EOMI, Normal appearance, PERRL ENT: Positive for: Normal ENT Inspection Neck: Positive for: Normal, Painless ROM, Supple Cardiovascular/Chest: Positive for: Regular Rate, Rhythm Respiratory: Positive for: Normal Breath Sounds. Negative for: Accessory Muscle Use, Respiratory Distress Gastrointestinal/Abdominal: Positive for: Normal Exam, Soft. Negative for: Tenderness Back: Positive for: Normal Inspection Extremity: Positive for: Normal ROM Neurological/Psych: Positive for: Awake, Alert, Oriented (x3). Negative for: Motor/Sensory Deficits - Laboratory Results Result Diagrams: 03/30/19 17:36 03/30/19 17:36 - ECG ECG: Positive for: Interpreted By Me, Viewed By Me ECG Rhythm: Positive for: Sinus Bradycardia (at 59bpm). Negative for: ST/T Changes Interpretation Of Abn EKG: possible left atrial enlargement O2 Sat by Pulse Oximetry: 100 (RA) Pulse Ox Interpretation: Normal Medical Decision Making Medical Decision Making: Time: 1631 Initial Impression: SOB, however vitals normal. pt in no respiratory distress. check ekg, labs for cardiac workup. less likely PE or DVt as vitals normal and pt not hypoxic and no personal or family history of dvt/pe. Initial Plan: --EKG --CMP --Trop I --CBC with differential --D Dimer --CXR 1855 Labs reviewed for no clinically significant abnormalities. D-dimer negative. Will repeat troponin. Patient in NAD eating food. pt not short of breath and states he feels fine. instructed him to follow up with his dr reyez next week but return sooner if symptoms recur. Scribe Attestation: Documented by Stephanie Shore, acting as a scribe for [place] Mayorga MD. Provider Scribe Attestation: All medical record entries made by the Scribe were at my direction and pers onally dictated by me. I have reviewed the chart and agree that the record accurately reflects my personal performance of the history, physical exam, medical decision making, and the department course for this patient. I have also personally directed, reviewed, and agree with the discharge instructions and disposition. Disposition - Clinical Impression Clinical Impression: Shortness of breath - Patient ED Disposition Is Patient to be Admitted: No Counseled Patient/Family Regarding: Studies Performed, Diagnosis, Need For Followup - Disposition Disposition: Routine/Home Disposition Time: 18:00 Condition: IMPROVED Additional Instructions: follow up with the cardiology appt you have set up next week in [place] return to the ED with any worsening or concerning symptoms Instructions: Shortness of Breath (Dyspnea) Forms: [employer] (Armenian)
[2019-03-30 17:40] LABS: BASO % 0.7 % (0.0-2.0); EOS # 0.3 K/uL (0.0-0.7); EOS % 3.8 % (0.0-4.0); HEMOGLOBIN 13.5 g/dL (12.0-18.0); LYMPH # 1.3 K/uL (1.0-4.3); LYMPH % 20.3 % (20.0-40.0); MEAN CELL VOLUME 87.9 fl (80.0-94.0); MEAN PLATELET VOLUME 8.5 fl (7.2-11.7); MONO # 0.4 K/uL (0.0-0.8); MONO % 6.8 % (0.0-10.0); NEUT # 4.5 K/uL (1.8-7.0); NEUT % 68.4 % (50.0-75.0); NRBC % 0.1 % (0.0-0.0); RBC 4.65 Mil/uL (4.40-5.90); RED CELL DISTRIBUTION WIDTH 12.1 % (11.5-14.5); WHITE BLOOD COUNT 6.6 K/uL (4.8-10.8)
[2019-03-30 17:52] LABS: ALB/GLOB RATIO 1.5 (1.0-2.1); ALBUMIN 4.4 g/dL (3.5-5.0); ALT/SGPT 58 U/L (21-72); AST/SGOT 44 U/L (17-59); BLOOD UREA NITROGEN 16 mg/dl (9-20); CALCIUM 9.2 mg/dL (8.4-10.2); GFR NON-AFRICAN AMERICAN > 60
--- NOTE | 2019-03-31 10:56 | RAD ---
Date of service: 03/30/2019 HISTORY: Chest pain. COMPARISON: 11/29/2018 TECHNIQUE: Chest PA and lateral views FINDINGS: LUNGS: No active pulmonary disease. PLEURA: No significant pleural effusion identified. No pneumothorax apparent. CARDIOVASCULAR: No aortic atherosclerotic calcification present. Normal cardiac size. No pulmonary vascular congestion. OSSEOUS STRUCTURES: No significant abnormalities. VISUALIZED UPPER ABDOMEN: Normal. OTHER FINDINGS: None. IMPRESSION: No active disease. No significant interval change compared to the prior examination(s). Concordant results with the preliminary interpretation rendered by the emergency department physician procedure.
== END | disposition home or self-care (01) ==
LOC: H.ER 14:36
DX: R06.02 Shortness of breath (principal); J44.9 Chronic obstructive pulmonary disease, unspecified